=== PATIENT | male | born 1990 | race Caucasian/White ===

== ENCOUNTER 2018-12-08 15:48 | Emergency (ER) | payer BC ==
[~2018-12-08] VITALS: Ht 175.3 cm; Wt 55.5 kg
[2018-12-08 15:57] VITALS: BP 123/76; Ht 175.3 cm; Wt 55.5 kg
== END 2018-12-08 17:31 | disposition left against medical advice (07) ==
LOC: ED 15:48
DX: Z53.21 Procedure and treatment not carried out due to patient leaving prior to being seen by health care provider (principal)

== ENCOUNTER 2019-07-07 09:28 | Emergency (ER) | payer SELFPAY ==
[~2019-07-07] VITALS: Ht 170.2 cm; Wt 54.4 kg
[2019-07-07 09:39] VITALS: BP 122/77; Ht 170.2 cm; Wt 54.4 kg
== END 2019-07-07 11:54 | disposition left against medical advice (07) ==
LOC: ED 09:28
DX: Z53.21 Procedure and treatment not carried out due to patient leaving prior to being seen by health care provider (principal)